=== PATIENT | male | born 1945 | race Caucasian/White ===

== ENCOUNTER 2019-09-23 13:32 | Day surgery (SDC) | payer MEDICARE, OTHER ==
[2019-09-18 14:25] LABS: BASOPHILS # (AUTO) 0.1 X10'3 (0-0.2); BASOPHILS % (AUTO) 0.7 % (0-1); EOSINOPHILS # (AUTO) 0.1 X10'3 (0-0.9); EOSINOPHILS % (AUTO) 1.6 % (0-6); HEMATOCRIT 41.1 % (42.0-52.0); HEMOGLOBIN 13.4 g/dl (14.0-17.9); LYMPHOCYTES # (AUTO) 0.7 X10'3 (1.1-4.8); LYMPHOCYTES % (AUTO) 9.4 % (21-51); MEAN CORPUSCULAR HEMOGLOBIN 30.1 PG (27.0-31.0); MEAN CORPUSCULAR HGB CONC 32.6 g/dL (33.0-36.5); MEAN CORPUSCULAR VOLUME 92.2 FL (78-98); MEAN PLATELET VOLUME 9.7 FL (7.4-10.4); MONOCYTES # (AUTO) 0.7 X10'3 (0-0.9); MONOCYTES % (AUTO) 8.2 % (2-12); NEUTROPHILS # (AUTO) 6.3 X10'3 (1.8-7.7); NEUTROPHILS % (AUTO) 80.1 % (42-75); PLATELET COUNT 140 X10'3 (140-440); RED BLOOD COUNT 4.46 X10'6 (4.70-6.10); RED CELL DISTRIBUTION WIDTH 14.7 % (11.5-14.5); WHITE BLOOD COUNT 7.9 X10'3 (4.5-11.0)
[2019-09-18 14:36] LABS: ALBUMIN 3.9 G/DL (3.4-5.0); ANION GAP 8 (8-16); BLOOD UREA NITROGEN 26 MG/DL (7-18); BUN/CREATININE RATIO 20.6 (5.4-32.0); CALCIUM 9.2 MG/DL (8.5-10.1); CHLORIDE 106 MMOL/L (99-107); CREATININE 1.26 MG/DL (0.60-1.10); GLUCOSE 144 MG/DL (70-104); POTASSIUM 4.2 MMOL/L (3.5-5.1); SODIUM 140 MMOL/L (135-145); TOTAL CARBON DIOXIDE 26.3 MMOL/L (24-32); eGFR 56 ML/MIN
[2019-09-18 14:38] LABS: PARTIAL THROMBOPLASTIN TIME 27 SECONDS (22-32)
[~2019-09-23] VITALS: Ht 170.2 cm; Wt 114.2 kg
[2019-09-23] VITALS (8 sets, daily range): BP systolic 126–155; BP diastolic 58–75
[~2019-09-23 13:32] MED LIST: ALD25T PO; CETI-1 PO; DOCU100C40 PO; FURO-150 PO; HYT1T PO; INSU100V13 SQ; LANTUS SQ; LOP25T PO; LOSA25TA96 PO; METF1000 PO; NOR5T PO; ONDA4TAB6 PO; POTA10TA10 PO; ZOC40T PO
[2019-09-23] MEDS ORDERED: LORazepam 0.5 MG tablet PO PRN (13:55)
[2019-09-23] MEDS ORDERED: normal saline 1,000 ML IV SCH (13:55)
[2019-09-23] MEDS ORDERED: diphenhydrAMINE 25mg capsule PO PRN (13:55)
[2019-09-23] MEDS ORDERED: MULT-1085 PO (14:13)
[2019-09-23] MEDS ORDERED: FERGLU300T PO (14:14)
[2019-09-23] MEDS ORDERED: ASPI-1265 PO (14:14)
[2019-09-23] MEDS ORDERED: NITR0.4T51 SL (14:14)
[2019-09-23] MEDS ORDERED: PANT-47 PO (14:14)
[2019-09-23] MEDS ORDERED: LEVO50TA8 PO (14:14)
[2019-09-23] MEDS ORDERED: DOCU100C40 PO (14:14)
[2019-09-23] MEDS ORDERED: CYAN-51 PO (14:14)
[2019-09-23] MEDS ORDERED: iohexol 350MG/ML 100ml bottle IV ONE (16:02)
[2019-09-23] MEDS ORDERED: LIDOcaine 1% (10mg/ml)w/preservative injection 20ml MDV ONE (16:02)
[2019-09-23] MEDS ORDERED: fentaNYL/PF 50MCG/1 ML 2ML syringe ONE (16:02)
[2019-09-23] MEDS ORDERED: midazolam 2 mg/2 ml injection ONE ×2 (16:02→17:02)
[2019-09-23] MEDS ORDERED: iohexol 350 MG/ML 50ML vial IV ONE (17:13)
[2019-09-23] MEDS ORDERED: ondansetron/PF 4mg/2ml inj IV PRN (18:15)
[2019-09-23] MEDS ORDERED: HYDROcodone/acetaminophen 10/325mg tab PO PRN (18:15)
[2019-09-23] MEDS ORDERED: OXAZEpam 15mg capsule PO PRN (18:15)
[2019-09-23] MEDS ORDERED: proCHLORperazine 10 MG/2 ml inj IV PRN (18:15)
[2019-09-23] MEDS ORDERED: HYDROcodone/acetaminophen 5mg/325mg tablet PO PRN (18:15)
== END 2019-09-23 19:40 | disposition home or self-care (01) ==
LOC: SSTAY O 13:32
PROVIDERS: ATTEND Internal Medicine Interventional Cardiology
DX: R94.39 Abnormal result of other cardiovascular function study (principal); I25.710 Atherosclerosis of autologous vein coronary artery bypass graft(s) with unstable angina pectoris; G47.33 Obstructive sleep apnea (adult) (pediatric); E11.9 Type 2 diabetes mellitus without complications; E03.9 Hypothyroidism, unspecified; F43.10 Post-traumatic stress disorder, unspecified; Z95.1 Presence of aortocoronary bypass graft; Z85.048 Personal history of other malignant neoplasm of rectum, rectosigmoid junction, and anus; Z90.49 Acquired absence of other specified parts of digestive tract; Z98.84 Bariatric surgery status; Z98.890 Other specified postprocedural states; Z79.899 Other long term (current) drug therapy; Z79.01 Long term (current) use of anticoagulants; Z79.82 Long term (current) use of aspirin; Z88.1 Allergy status to other antibiotic agents; Z79.4 Long term (current) use of insulin; Z87.891 Personal history of nicotine dependence; Z83.3 Family history of diabetes mellitus; Z82.49 Family history of ischemic heart disease and other diseases of the circulatory system
CPT/HCPCS: 36415; 80048; 82948; 85025; 85610; 85730; 93459; 99152; C1769; J1644; J2001; J2250; J3010; J7030; Q0163; Q9967; A4620; A6258

== ENCOUNTER 2020-09-02 16:23 | Emergency (ER) | payer OTHER, MEDICARE ==
[~2020-09-02] VITALS: Ht 170.2 cm; Wt 113.6 kg
[~2020-09-02 16:23] MED LIST changes: +ASPI-1265 PO; +CYAN-51 PO; +FERR324T23 PO; -INSU100V13 SQ; +LEVO50TA8 PO; -LOP25T PO; +MULT-1085 PO; +NITR0.4T51 SL; -ONDA4TAB6 PO; +PANT-47 PO
[2020-09-02 17:27] LABS: BASOPHILS % (AUTO) 0.3 % (0-1); EOSINOPHILS # (AUTO) 0.1 X10'3 (0-0.9); EOSINOPHILS % (AUTO) 1.1 % (0-6); HEMATOCRIT 40.6 % (42.0-52.0); HEMOGLOBIN 13.4 g/dl (14.0-17.9); LYMPHOCYTES # (AUTO) 0.6 X10'3 (1.1-4.8); MEAN CORPUSCULAR HEMOGLOBIN 30.6 PG (27.0-31.0); MEAN CORPUSCULAR HGB CONC 32.9 g/dL (33.0-36.5); MEAN CORPUSCULAR VOLUME 92.9 FL (78-98); MONOCYTES # (AUTO) 0.7 X10'3 (0-0.9); MONOCYTES % (AUTO) 6.8 % (2-12); NEUTROPHILS # (AUTO) 8.3 X10'3 (1.8-7.7); NEUTROPHILS % (AUTO) 85.8 % (42-75); PLATELET COUNT 155 X10'3 (140-440); RED BLOOD COUNT 4.37 X10'6 (4.70-6.10); RED CELL DISTRIBUTION WIDTH 14.7 % (11.5-14.5); WHITE BLOOD COUNT 9.6 X10'3 (4.5-11.0)
[2020-09-02 17:43] LABS: ALANINE AMINOTRANSFERASE 20 U/L (12-78); ALBUMIN 3.6 G/DL (3.4-5.0); ALKALINE PHOSPHATASE 121 IU/L (46-116); ANION GAP 10 (8-16); ASPARTATE AMINO TRANSFERASE 14 U/L (10-37); BILIRUBIN,TOTAL 0.7 MG/DL (0.1-1.0); BLOOD UREA NITROGEN 23 MG/DL (7-18); BUN/CREATININE RATIO 20.4 (5.4-32.0); CALCIUM 8.9 MG/DL (8.5-10.1); CHLORIDE 104 MMOL/L (99-107); CREATININE 1.13 MG/DL (0.60-1.10); GLUCOSE 124 MG/DL (70-104); POTASSIUM 3.9 MMOL/L (3.5-5.1); SODIUM 143 MMOL/L (135-145); TOTAL CARBON DIOXIDE 28.7 MMOL/L (24-32); TOTAL PROTEIN 7.3 G/DL (6.4-8.2); eGFR 64 ML/MIN
[2020-09-02 17:59] VITALS: BP 154/72
== END 2020-09-02 18:12 | disposition home or self-care (01) ==
LOC: ER 16:23
DX: I48.91 Unspecified atrial fibrillation (principal); I50.9 Heart failure, unspecified; R07.89 Other chest pain; E78.00 Pure hypercholesterolemia, unspecified; I11.0 Hypertensive heart disease with heart failure; I25.2 Old myocardial infarction; K21.9 Gastro-esophageal reflux disease without esophagitis; E11.9 Type 2 diabetes mellitus without complications; E03.9 Hypothyroidism, unspecified; Z95.5 Presence of coronary angioplasty implant and graft; Z85.038 Personal history of other malignant neoplasm of large intestine; Z79.4 Long term (current) use of insulin; Z79.82 Long term (current) use of aspirin; Z79.899 Other long term (current) drug therapy; Z88.1 Allergy status to other antibiotic agents
CPT/HCPCS: 36415; 71045; 80053; 84484; 85025; 93005; 99285

== ENCOUNTER 2020-09-27 22:05 | Emergency (ER) | payer OTHER, MEDICARE ==
[~2020-09-27] VITALS: Ht 170.2 cm; Wt 92.0 kg
[2020-09-27 22:07] VITALS: BP 151/68
[2020-09-27 22:49] LABS: BASOPHILS # (AUTO) 0.1 X10'3 (0-0.2); BASOPHILS % (AUTO) 0.9 % (0-1); EOSINOPHILS # (AUTO) 0.2 X10'3 (0-0.9); EOSINOPHILS % (AUTO) 1.9 % (0-6); HEMATOCRIT 43.7 % (42.0-52.0); HEMOGLOBIN 14.5 g/dl (14.0-17.9); LYMPHOCYTES # (AUTO) 0.8 X10'3 (1.1-4.8); LYMPHOCYTES % (AUTO) 9.2 % (21-51); MEAN CORPUSCULAR HEMOGLOBIN 30.6 PG (27.0-31.0); MEAN CORPUSCULAR HGB CONC 33.2 g/dL (33.0-36.5); MEAN CORPUSCULAR VOLUME 92.1 FL (78-98); MEAN PLATELET VOLUME 9.3 FL (7.4-10.4); MONOCYTES # (AUTO) 0.8 X10'3 (0-0.9); NEUTROPHILS # (AUTO) 7.2 X10'3 (1.8-7.7); PLATELET COUNT 152 X10'3 (140-440); RED BLOOD COUNT 4.75 X10'6 (4.70-6.10); RED CELL DISTRIBUTION WIDTH 14.4 % (11.5-14.5); WHITE BLOOD COUNT 9.1 X10'3 (4.5-11.0)
[2020-09-27 23:07] LABS: ALANINE AMINOTRANSFERASE 30 U/L (12-78); ALBUMIN 3.8 G/DL (3.4-5.0); ALKALINE PHOSPHATASE 122 IU/L (46-116); ANION GAP 13 (8-16); ASPARTATE AMINO TRANSFERASE 24 U/L (10-37); BILIRUBIN,TOTAL 0.6 MG/DL (0.1-1.0); BLOOD UREA NITROGEN 26 MG/DL (7-18); BUN/CREATININE RATIO 18.7 (5.4-32.0); CHLORIDE 103 MMOL/L (99-107); CREATININE 1.39 MG/DL (0.60-1.10); GLUCOSE 116 MG/DL (70-104); POTASSIUM 3.6 MMOL/L (3.5-5.1); SODIUM 142 MMOL/L (135-145); TOTAL CARBON DIOXIDE 25.9 MMOL/L (24-32); TOTAL PROTEIN 7.8 G/DL (6.4-8.2); eGFR 50 ML/MIN
== END 2020-09-27 23:51 | disposition home or self-care (01) ==
LOC: ER 22:06
DX: E11.649 Type 2 diabetes mellitus with hypoglycemia without coma (principal); I25.10 Atherosclerotic heart disease of native coronary artery without angina pectoris; E78.00 Pure hypercholesterolemia, unspecified; I10 Essential (primary) hypertension; I25.2 Old myocardial infarction; F41.9 Anxiety disorder, unspecified; Z95.1 Presence of aortocoronary bypass graft; Z98.890 Other specified postprocedural states; Z88.1 Allergy status to other antibiotic agents; Z79.82 Long term (current) use of aspirin; Z79.4 Long term (current) use of insulin; Z79.899 Other long term (current) drug therapy
CPT/HCPCS: 36415; 80053; 82948; 85025; 99283

== ENCOUNTER 2020-12-31 08:46 | Day surgery (SDC) | payer OTHER ==
[2020-12-31] VITALS (14 sets, daily range): BP systolic 114–171; BP diastolic 52–90
[~2020-12-31] VITALS: Ht 170.2 cm; Wt 107.0 kg
[2020-12-31 09:44] LABS: BASOPHILS % (AUTO) 0.5 % (0-1); EOSINOPHILS # (AUTO) 0.2 X10'3 (0-0.9); HEMATOCRIT 43.9 % (42.0-52.0); HEMOGLOBIN 14.6 g/dl (14.0-17.9); LYMPHOCYTES # (AUTO) 0.9 X10'3 (1.1-4.8); MEAN CORPUSCULAR HEMOGLOBIN 30.8 PG (27.0-31.0); MEAN CORPUSCULAR HGB CONC 33.2 g/dL (33.0-36.5); MEAN CORPUSCULAR VOLUME 92.9 FL (78-98); MEAN PLATELET VOLUME 8.7 FL (7.4-10.4); MONOCYTES # (AUTO) 0.7 X10'3 (0-0.9); MONOCYTES % (AUTO) 8.5 % (2-12); NEUTROPHILS # (AUTO) 6.1 X10'3 (1.8-7.7); PLATELET COUNT 166 X10'3 (140-440); RED BLOOD COUNT 4.72 X10'6 (4.70-6.10); RED CELL DISTRIBUTION WIDTH 14.5 % (11.5-14.5); WHITE BLOOD COUNT 7.9 X10'3 (4.5-11.0)
[2020-12-31] MEDS ORDERED: DABI150C PO (09:49)
[2020-12-31] MEDS ORDERED: EMPA10TA PO (09:49)
[2020-12-31] MEDS ORDERED: midazolam 1 mg/ML 2ml injection ONE (10:42)
[2020-12-31] MEDS ORDERED: fentaNYL/PF 50MCG/1 ML 2ML syringe ONE (10:43)
== END 2020-12-31 13:40 | disposition home or self-care (01) ==
LOC: SSTAY O 08:46
PROVIDERS: ATTEND Preventive Medicine Aerospace Medicine
DX: R91.1 Solitary pulmonary nodule (principal); C34.12 Malignant neoplasm of upper lobe, left bronchus or lung; N40.0 Benign prostatic hyperplasia without lower urinary tract symptoms; I10 Essential (primary) hypertension; E78.5 Hyperlipidemia, unspecified; G47.30 Sleep apnea, unspecified; F43.10 Post-traumatic stress disorder, unspecified; E11.9 Type 2 diabetes mellitus without complications; Z85.038 Personal history of other malignant neoplasm of large intestine; Z95.1 Presence of aortocoronary bypass graft; Z88.1 Allergy status to other antibiotic agents; Z79.899 Other long term (current) drug therapy; Z79.82 Long term (current) use of aspirin; Z79.4 Long term (current) use of insulin; Z87.891 Personal history of nicotine dependence
CPT/HCPCS: 32408; 36415; 71045; 82948; 85025; 99152; 99153; J2250; J3010; 77012

== ENCOUNTER 2022-02-28 08:24 | Day surgery (SDC) | payer OTHER ==
[~2022-02-28] VITALS: Ht 170.2 cm; Wt 109.7 kg
[2022-02-28] VITALS (13 sets, daily range): BP systolic 120–189; BP diastolic 55–96
[~2022-02-28 08:24] MED LIST changes: +DABI150C PO; +EMPA10TA PO; -POTA10TA10 PO
[2022-02-28] MEDS ORDERED: normal saline 1000ml 1,000 ML IV PRN (08:50)
[2022-02-28 09:14] LABS: BASOPHILS % (AUTO) 0.6 % (0-1); EOSINOPHILS # (AUTO) 0.1 X10'3 (0-0.9); EOSINOPHILS % (AUTO) 1.8 % (0-6); HEMATOCRIT 42.9 % (42.0-52.0); HEMOGLOBIN 13.8 g/dl (14.0-17.9); LYMPHOCYTES # (AUTO) 0.7 X10'3 (1.1-4.8); LYMPHOCYTES % (AUTO) 9.2 % (21-51); MEAN CORPUSCULAR HEMOGLOBIN 28.9 PG (27.0-31.0); MEAN CORPUSCULAR HGB CONC 32.2 g/dL (33.0-36.5); MEAN CORPUSCULAR VOLUME 89.8 FL (78-98); MEAN PLATELET VOLUME 8.7 FL (7.4-10.4); MONOCYTES # (AUTO) 0.6 X10'3 (0-0.9); MONOCYTES % (AUTO) 7.7 % (2-12); NEUTROPHILS % (AUTO) 80.7 % (42-75); PLATELET COUNT 150 X10'3 (140-440); RED BLOOD COUNT 4.78 X10'6 (4.70-6.10); RED CELL DISTRIBUTION WIDTH 14.9 % (11.5-14.5); WHITE BLOOD COUNT 7.5 X10'3 (4.5-11.0)
[2022-02-28] MEDS ORDERED: midazolam 1 mg/ML 2ml injection ONE (09:33)
[2022-02-28] MEDS ORDERED: fentaNYL/PF 50MCG/1 ML 2ML syringe ONE (09:34)
[2022-02-28] MEDS ORDERED: LIDOcaine 1% (10mg/ml) 2ml vial ONE (09:34)
[2022-02-28] MEDS ORDERED: gelatin sponge, absorbable (Gelfoam 12-7MM) sponge TP ONE (10:17)
[2022-02-28] MEDS ORDERED: morphine 4 MG/ML inj SYRINge IV PRN (10:30)
[2022-02-28] MEDS ORDERED: HYDROcodone/acetaminophen 5mg/325mg tablet PO PRN (10:30)
== END 2022-02-28 13:40 | disposition home or self-care (01) ==
LOC: SSTAY O 08:24
PROVIDERS: ATTEND Radiology Vascular & Interventional Radiology
DX: R91.8 Other nonspecific abnormal finding of lung field (principal); C34.12 Malignant neoplasm of upper lobe, left bronchus or lung; I10 Essential (primary) hypertension; I25.10 Atherosclerotic heart disease of native coronary artery without angina pectoris; G47.33 Obstructive sleep apnea (adult) (pediatric); F43.10 Post-traumatic stress disorder, unspecified; I25.9 Chronic ischemic heart disease, unspecified; I73.9 Peripheral vascular disease, unspecified; E78.2 Mixed hyperlipidemia; E11.3519 Type 2 diabetes mellitus with proliferative diabetic retinopathy with macular edema, unspecified eye; Z87.891 Personal history of nicotine dependence; Z88.1 Allergy status to other antibiotic agents; Z98.890 Other specified postprocedural states; Z95.1 Presence of aortocoronary bypass graft; Z79.899 Other long term (current) drug therapy; Z79.82 Long term (current) use of aspirin; Z79.84 Long term (current) use of oral hypoglycemic drugs; Z79.4 Long term (current) use of insulin; Z79.890 Hormone replacement therapy; Z79.01 Long term (current) use of anticoagulants
CPT/HCPCS: 32408; 36415; 71045; 82948; 85025; 99152; 99153; J2250; J3010; J3490; J7030; 77012; A4615

== ENCOUNTER 2022-04-27 10:00 | Outpatient (CLI) | payer MEDICARE ==
[~2022-04-27] VITALS: Ht 165.1 cm; Wt 108.9 kg
[2022-04-27 10:35] LABS: ABG BASE EXCESS -2.3 mmol/L (-2.0-2.0); ABG OXYGEN SATURATION 96.6 % (94-97); ABG PCO2 (T) 36.6 mmHg (35.0-48.0); ABG PO2 (T) 88.2 mmHg (75.0-100.0); ALLEN'S TEST POSITIVE; FCOHb 1.2 % (0.0-3.9); FMetHb 0.2 % (0.0-1.5); FO2Hb 95.2 % (94-97)
[2022-04-27] MEDS ORDERED: albuterol 2.5 MG/3 ML nebule NEB ONE (11:20)
== END 2022-04-27 23:59 | disposition home or self-care (01) ==
LOC: RT 10:00
PROVIDERS: ATTEND Surgery
DX: R94.2 Abnormal results of pulmonary function studies (principal); J98.4 Other disorders of lung
CPT/HCPCS: 36600; 82803; 85018; 94060; 94727; 94729; 94760

== ENCOUNTER 2022-05-11 10:55 | Day surgery (SDC) | payer MEDICARE ==
[2022-05-11] VITALS (12 sets, daily range): BP systolic 129–155; BP diastolic 60–97
[~2022-05-11] VITALS: Ht 167.6 cm; Wt 106.4 kg
[2022-05-11] MEDS ORDERED: nitroGLYCERIN 0.4mg SUBLingual tab SL PRN ×2 (11:20→15:55)
[2022-05-11] MEDS ORDERED: insulin Lispro (HumaLOG) vial - multi-dose SQ SCH (11:20)
[2022-05-11] MEDS ORDERED: diphenhydrAMINE 25mg capsule PO PRN (11:20)
[2022-05-11] MEDS ORDERED: glucagon, human recombinant 1mg kit SUBCUT PRN (11:20)
[2022-05-11] MEDS ORDERED: LORazepam 0.5 MG tablet PO PRN (11:20)
[2022-05-11] MEDS ORDERED: DEXTROSE 15 GM of carb/4 tabs (each vial/BOTTLE has 4 tablets) PO PRN ×2 (11:20)
[2022-05-11] MEDS ORDERED: dextrose 50%-water 50ml dispensing syringe IV PRN ×2 (11:20)
[2022-05-11] MEDS ORDERED: iohexol 350 MG/ML 50ML vial IV ONE (13:20)
[2022-05-11] MEDS ORDERED: fentaNYL/PF 50MCG/1 ML 2ML syringe ONE (13:20)
[2022-05-11] MEDS ORDERED: LIDOcaine 1% 30ml preserv. free vial ONE (13:20)
[2022-05-11] MEDS ORDERED: iohexol 350MG/ML 100ml bottle IV ONE ×2 (13:20→14:38)
[2022-05-11] MEDS ORDERED: midazolam 1 mg/ML 2ml injection ONE (13:20)
[2022-05-11] MEDS ORDERED: ondansetron/PF 4mg/2ml inj IV PRN (15:55)
[2022-05-11] MEDS ORDERED: proCHLORperazine 10 MG/2 ml inj IV PRN (15:55)
[2022-05-11] MEDS ORDERED: normal saline 1000ml 1,000 ML IV SCH (15:55)
[2022-05-11] MEDS ORDERED: HYDROcodone/acetaminophen 10/325mg tab PO PRN (15:55)
[2022-05-11] MEDS ORDERED: OXAZEpam 15mg capsule PO PRN (15:55)
[2022-05-11] MEDS ORDERED: HYDROcodone/acetaminophen 5mg/325mg tablet PO PRN (15:55)
[2022-05-11] MEDS ORDERED: insulin glargine (Lantus) pen - multi-dose SQ SCH (21:00)
[2022-05-13] MEDS ORDERED: EMPA25TA PO (10:46)
[2022-05-13] MEDS ORDERED: TERA2CAP4 PO (10:46)
[2022-05-13] MEDS ORDERED: LEVO75TA7 PO (10:46)
[2022-05-13] MEDS ORDERED: FURO40TA4 PO (10:46)
[2022-05-13] MEDS ORDERED: LOSA100T57 PO (10:46)
== END 2022-05-11 21:05 | disposition home or self-care (01) ==
LOC: SSTAY O 10:55
PROVIDERS: ATTEND Internal Medicine Cardiovascular Disease
DX: R06.09 Other forms of dyspnea (principal); I25.718 Atherosclerosis of autologous vein coronary artery bypass graft(s) with other forms of angina pectoris; G47.33 Obstructive sleep apnea (adult) (pediatric); E11.9 Type 2 diabetes mellitus without complications; M47.9 Spondylosis, unspecified; F40.240 Claustrophobia; I10 Essential (primary) hypertension; E78.5 Hyperlipidemia, unspecified; J44.9 Chronic obstructive pulmonary disease, unspecified; I48.20 Chronic atrial fibrillation, unspecified; E66.01 Morbid (severe) obesity due to excess calories; Z68.37 Body mass index [BMI] 37.0-37.9, adult; Z87.891 Personal history of nicotine dependence; Z88.1 Allergy status to other antibiotic agents; Z95.1 Presence of aortocoronary bypass graft; Z85.038 Personal history of other malignant neoplasm of large intestine; Z79.899 Other long term (current) drug therapy; Z79.01 Long term (current) use of anticoagulants
CPT/HCPCS: 82948; 93459; 99152; 99153; C1760; C1769; J1644; J1815; J2250; J3010; J3490; J7030; Q0163; Q9967

== ENCOUNTER 2022-05-29 19:24 | Emergency (ER) | payer MEDICARE ==
[~2022-05-29] VITALS: Ht 167.6 cm; Wt 107.3 kg
[~2022-05-29 19:24] MED LIST changes: -EMPA10TA PO; +EMPA25TA PO; -FURO-150 PO; +FURO40TA4 PO; -HYT1T PO; -LEVO50TA8 PO; +LEVO75TA7 PO; +LOSA100T57 PO; -LOSA25TA96 PO; +TERA2CAP4 PO
[2022-05-29 20:20] LABS: BASOPHILS # (AUTO) 0.1 X10'3 (0-0.2); BASOPHILS % (AUTO) 0.6 % (0-1); EOSINOPHILS # (AUTO) 0.1 X10'3 (0-0.9); EOSINOPHILS % (AUTO) 0.7 % (0-6); HEMATOCRIT 28.1 % (42.0-52.0); HEMOGLOBIN 9.2 g/dl (14.0-17.9); LYMPHOCYTES # (AUTO) 0.7 X10'3 (1.1-4.8); MEAN CORPUSCULAR HEMOGLOBIN 28.1 PG (27.0-31.0); MEAN CORPUSCULAR HGB CONC 32.6 g/dL (33.0-36.5); MEAN CORPUSCULAR VOLUME 86.3 FL (78-98); MEAN PLATELET VOLUME 7.8 FL (7.4-10.4); MONOCYTES # (AUTO) 1.2 X10'3 (0-0.9); MONOCYTES % (AUTO) 6.6 % (2-12); NEUTROPHILS # (AUTO) 16.6 X10'3 (1.8-7.7); NEUTROPHILS % (AUTO) 88.1 % (42-75); PLATELET COUNT 317 X10'3 (140-440); RED BLOOD COUNT 3.26 X10'6 (4.70-6.10); RED CELL DISTRIBUTION WIDTH 16.8 % (11.5-14.5); WHITE BLOOD COUNT 18.8 X10'3 (4.5-11.0)
[2022-05-29 20:32] LABS: ALANINE AMINOTRANSFERASE 17 U/L (12-78); ALBUMIN 2.2 G/DL (3.4-5.0); ALBUMIN/GLOBULIN RATIO 0.6 (1.1-1.5); ALKALINE PHOSPHATASE 229 IU/L (46-116); ANION GAP 10 (8-16); ASPARTATE AMINO TRANSFERASE 15 U/L (10-37); BILIRUBIN,TOTAL 0.4 MG/DL (0.1-1.0); BLOOD UREA NITROGEN 47 MG/DL (7-18); BUN/CREATININE RATIO 13.6 (5.4-32.0); CALCIUM 8.1 MG/DL (8.5-10.1); CHLORIDE 94 MMOL/L (99-107); CREATININE 3.45 MG/DL (0.60-1.10); GLUCOSE 161 MG/DL (70-104); POTASSIUM 5.4 MMOL/L (3.5-5.1); SODIUM 129 MMOL/L (135-145); TOTAL CARBON DIOXIDE 25.2 MMOL/L (24-32); eGFR 17 ML/MIN
[2022-05-29 22:05] LABS: CLARITY,URINE CLOUDY (Clear); GLUCOSE, URINE 250 mg/dl (Neg); KETONES,URINE TRACE mg/dl (Neg); LEUKOCYTE ESTERASE ,URINE TRACE (Neg); OCCULT BLOOD,URINE LARGE (Neg); PROTEIN,URINE 100 mg/dl (Neg); UROBILINOGEN,URINE 0.2 E.U/dL (0.2-1.0)
[2022-05-29] MEDS ORDERED: normal saline 1000ML IV soln IVB ONE (22:05)
[2022-05-29] MEDS ORDERED: CefTRIAXone 2gm/D5W 50ml BAG 50 ML IV ONE (22:05)
[2022-05-29 22:10] LABS: COLOR,URINE DARK YELLOW (Yellow); UA COLLECTION TYPE STRAIGHT CATH
[2022-05-29 22:12] LABS: NITRITES, URINE NEGATIVE (Neg)
[2022-05-29 22:13] LABS: MUCUS STRANDS FEW /LPF (Neg); RBC,URINE TNTC /HPF (0-2); SQUAMOUS EPITHELIAL CELL,UR FEW /LPF (FEW); TRANSITIONAL EPI CELLS,URINE FEW /HPF
[2022-05-29 22:14] LABS: BACTERIA,URINE 3+ /HPF (Neg); RENAL CELLS, URINE FEW /HPF; WBC CLUMPS,URINE FEW /HPF (NEGATIVE)
[2022-05-29 23:00] VITALS: BP 104/48
[2022-05-29] MEDS ORDERED: CEPH500C2 PO (23:17)
[2022-06-01] MEDS ORDERED: HYDR-3973 PO (00:46)
[2022-06-01] MEDS ORDERED: NA P133E4 RC (00:46)
[2022-06-01] MEDS ORDERED: ATOR20TA PO (00:46)
[2022-06-01] MEDS ORDERED: FURO-149 PO (00:46)
[2022-06-01] MEDS ORDERED: BISA10SU60 RC (00:46)
[2022-06-01] MEDS ORDERED: LOPE-190 PO (00:46)
[2022-06-01] MEDS ORDERED: MAGN400O6 PO (00:46)
[2022-06-01] MEDS ORDERED: ACET-2119 PO (00:46)
[2022-06-01] MEDS ORDERED: INSU100V43 (00:46)
== END 2022-05-30 00:18 | disposition home or self-care (01) ==
LOC: ER 19:25
DX: N39.0 Urinary tract infection, site not specified (principal); E86.0 Dehydration; E78.00 Pure hypercholesterolemia, unspecified; I10 Essential (primary) hypertension; E11.9 Type 2 diabetes mellitus without complications; Z88.1 Allergy status to other antibiotic agents
CPT/HCPCS: 36415; 71045; 80053; 81001; 83605; 84145; 85025; 87040; 87077; 87088; 87186; 96365; 99284; J0696; J7030

== ENCOUNTER 2022-06-22 09:49 | Inpatient (IN) | payer OTHER, MEDICARE ==
[~2022-06-22] VITALS: Ht 167.6 cm; Wt 90.3 kg
[~2022-06-22 09:49] MED LIST changes: +ACET-2119 PO; +ATOR20TA PO; +BISA10SU60 RC; +FURO-149 PO; -FURO40TA4 PO; +HYDR-3973 PO; +INSU100V43; +LOPE-190 PO; +MAGN400O6 PO; +NA P133E4 RC; -ZOC40T PO
[2022-06-22 10:19] LABS: BASOPHILS # (AUTO) 0.1 X10'3 (0-0.2); BASOPHILS % (AUTO) 0.9 % (0-1); EOSINOPHILS # (AUTO) 0.2 X10'3 (0-0.9); EOSINOPHILS % (AUTO) 2.2 % (0-6); HEMOGLOBIN 10.7 g/dl (14.0-17.9); LYMPHOCYTES # (AUTO) 0.5 X10'3 (1.1-4.8); LYMPHOCYTES % (AUTO) 5.3 % (21-51); MEAN CORPUSCULAR HEMOGLOBIN 26.3 PG (27.0-31.0); MEAN CORPUSCULAR HGB CONC 30.5 g/dL (33.0-36.5); MEAN CORPUSCULAR VOLUME 86.2 FL (78-98); MONOCYTES # (AUTO) 0.8 X10'3 (0-0.9); MONOCYTES % (AUTO) 9.7 % (2-12); NEUTROPHILS # (AUTO) 7.1 X10'3 (1.8-7.7); NEUTROPHILS % (AUTO) 81.9 % (42-75); PLATELET COUNT 294 X10'3 (140-440); RED BLOOD COUNT 4.06 X10'6 (4.70-6.10); RED CELL DISTRIBUTION WIDTH 17.2 % (11.5-14.5); WHITE BLOOD COUNT 8.7 X10'3 (4.5-11.0)
[2022-06-22 10:24] LABS: ALANINE AMINOTRANSFERASE 6 U/L (12-78); ALBUMIN 2.3 G/DL (3.4-5.0); ALBUMIN/GLOBULIN RATIO 0.5 (1.1-1.5); ALKALINE PHOSPHATASE 237 IU/L (46-116); ASPARTATE AMINO TRANSFERASE 14 U/L (10-37); BILIRUBIN,TOTAL 0.7 MG/DL (0.1-1.0); BLOOD UREA NITROGEN 24 MG/DL (7-18); BUN/CREATININE RATIO 18.8 (5.4-32.0); CALCIUM 8.8 MG/DL (8.5-10.1); CHLORIDE 108 MMOL/L (99-107); CREATININE 1.28 MG/DL (0.60-1.10); GLUCOSE 199 MG/DL (70-104); MAGNESIUM 2.1 MG/DL (1.5-2.4); POTASSIUM 4.3 MMOL/L (3.5-5.1); TOTAL CARBON DIOXIDE 25.9 MMOL/L (24-32); TOTAL PROTEIN 6.6 G/DL (6.4-8.2); eGFR 55 ML/MIN
[2022-06-22 10:27] LABS: ANION GAP 6 (8-16); SODIUM 140 MMOL/L (135-145)
[2022-06-22] MEDS ORDERED: furosemide 10 MG/1 ML 10ml inj IV ONE (10:35)
[2022-06-22] MEDS ORDERED: iohexol 350MG/ML 100ml bottle IV ONE ×2 (10:38→12:51)
[2022-06-22] MEDS ORDERED: albuterol 2.5 MG/3 ML nebule NEB ONE (11:30)
[2022-06-22] MEDS ORDERED: ipratropium/albuterol 3ml nebule NEB ONE (11:30)
[2022-06-22] MEDS ORDERED: ipratropium 0.5 MG/2.5ML nebule ONE (14:06)
[2022-06-22] MEDS ORDERED: ipratropium 0.5 MG/2.5ML nebule IH ONE (14:10)
[2022-06-22] MEDS: MESSAGE TO NURSING PO NR (14:23)
[2022-06-22 15:09] LABS: ABG BASE EXCESS 1.8 mmol/L (-2.0-2.0); ABG HCO3 27.1 mmol/L (22.0-26.0); ABG OXYGEN SATURATION 97.4 % (94-97); ABG PCO2 (T) 45.7 mmHg (35.0-48.0); ABG PO2 (T) 100.4 mmHg (75.0-100.0); ALLEN'S TEST POSITIVE; FCOHb 0.4 % (0.0-3.9); FMetHb 0.3 % (0.0-1.5); FO2Hb 96.7 % (94-97); RESPIRATORY RATE 10 b/min; TOTAL HEMOGLOBIN 11.3 G/dl (14.0-17.9)
[2022-06-22] MEDS ORDERED: cefepime 2g/NS 100ml ADVANTAGE 100 ML IV ONE (16:10)
[2022-06-22 16:33] VITALS: BP 134/67
[2022-06-22 16:45] VITALS: BP 131/61
[2022-06-22] MEDS ORDERED: HYDR-3973 PO (17:05)
[2022-06-22] MEDS ORDERED: NA P133E4 RC (17:06)
[2022-06-22] MEDS ORDERED: BISA10SU60 RC (17:06)
[2022-06-22] MEDS ORDERED: MAGN400O6 PO (17:06)
[2022-06-22] MEDS ORDERED: SIMV-343 PO (17:13)
[2022-06-22] MEDS ORDERED: morphine 2 MG/ML inj. syringe IV PRN (18:05)
[2022-06-22] MEDS ORDERED: ipratropium/albuterol 3ml nebule NEB PRN ×2 (18:05)
[2022-06-22] MEDS ORDERED: potassium Cl 20 mEq SR tablet PO PRN ×2 (18:05)
[2022-06-22] MEDS ORDERED: potassium Cl 40MEQ/1/2NS 520ml 520 ML IV PRN (18:05)
[2022-06-22] MEDS ORDERED: magnesium Cl slow-release 64mg tablet PO PRN (18:05)
[2022-06-22] MEDS ORDERED: acetaminophen 325mg tablet PO PRN (18:05)
[2022-06-22] MEDS ORDERED: ondansetron/PF 4mg/2ml inj IV PRN (18:05)
[2022-06-22] MEDS ORDERED: magnesium 4gm in 100ml NS 100 ML IV PRN (18:05)
[2022-06-22] MEDS: normal saline 1000ml 1,000 ML IV SCH (18:32)
--- NOTE | 2022-06-22 19:23 | NUR ---
CHEST TUBE OUTPUT OF 1922 625 CC SEROSANGUINOUS
[2022-06-22] MEDS: K and/or MAG REPLACEMENT MC SCH (20:00)
--- NOTE | 2022-06-22 21:47 | NUR ---
report called to PCU Nurse
[2022-06-22 23:00] VITALS: BP 142/54
[2022-06-23 06:00] VITALS: BP 134/46
[2022-06-23 07:02] LABS: BASOPHILS % (AUTO) 0.5 % (0-1); EOSINOPHILS # (AUTO) 0.1 X10'3 (0-0.9); EOSINOPHILS % (AUTO) 1.2 % (0-6); HEMATOCRIT 32.4 % (42.0-52.0); HEMOGLOBIN 10.3 g/dl (14.0-17.9); LYMPHOCYTES # (AUTO) 0.5 X10'3 (1.1-4.8); LYMPHOCYTES % (AUTO) 6.2 % (21-51); MEAN CORPUSCULAR HEMOGLOBIN 26.4 PG (27.0-31.0); MEAN CORPUSCULAR HGB CONC 31.7 g/dL (33.0-36.5); MEAN CORPUSCULAR VOLUME 83.4 FL (78-98); MEAN PLATELET VOLUME 7.9 FL (7.4-10.4); MONOCYTES # (AUTO) 0.7 X10'3 (0-0.9); MONOCYTES % (AUTO) 8.3 % (2-12); NEUTROPHILS # (AUTO) 6.8 X10'3 (1.8-7.7); NEUTROPHILS % (AUTO) 83.8 % (42-75); PLATELET COUNT 315 X10'3 (140-440); RED BLOOD COUNT 3.89 X10'6 (4.70-6.10); RED CELL DISTRIBUTION WIDTH 17.1 % (11.5-14.5); WHITE BLOOD COUNT 8.1 X10'3 (4.5-11.0)
--- NOTE | 2022-06-23 07:18 | NUR ---
PAGER ID: [phone] MESSAGE: Parviz in [id number] - Pt has no diet order and home meds have not been ordered. -Jenna [phone]
[2022-06-23 07:30] LABS: ALBUMIN 2.3 G/DL (3.4-5.0); ANION GAP 8 (8-16); BLOOD UREA NITROGEN 25 MG/DL (7-18); BUN/CREATININE RATIO 19.5 (5.4-32.0); CALCIUM 8.8 MG/DL (8.5-10.1); CHLORIDE 106 MMOL/L (99-107); CREATININE 1.28 MG/DL (0.60-1.10); GLUCOSE 148 MG/DL (70-104); MAGNESIUM 2.1 MG/DL (1.5-2.4); POTASSIUM 3.9 MMOL/L (3.5-5.1); SODIUM 143 MMOL/L (135-145); TOTAL CARBON DIOXIDE 28.8 MMOL/L (24-32); eGFR 55 ML/MIN
[2022-06-23] MEDS: K and/or MAG REPLACEMENT MC SCH ×2 (08:00→20:00)
[2022-06-23] MEDS: MESSAGE TO NURSING PO NR (10:00)
[2022-06-23] MEDS: HYDROcodone/acetaminophen 5mg/325mg tablet PO PRN (10:17)
--- NOTE | 2022-06-23 10:57 | NUR ---
PAGER ID: [phone] MESSAGE: Parviz Vigil in [id number] - Pt is diabetic. Do you want him on protocol? -Jenna [phone]
[2022-06-23 11:27] VITALS: BP 140/55
--- NOTE | 2022-06-23 11:54 | NUR ---
Student documentation: I have reviewed and agree with all interventions, assessments performed and documented by Nettie student nurse.
--- NOTE | 2022-06-23 14:00 | NUR ---
PRESSURE ULCER EDUCATION: DEFINITION: A pressure ulcer is an area of skin that breaks down when you stay in one position too long. The constant pressure against the skin reduces the blood flow to that area and the affected tissue dies. CAUSES: "Being bedridden or in a wheelchair "Fragile skin "Having a chronic condition, such as diabetes or vascular disease "Inability to move certain parts of your body without assistance "Older age "Incontinence of urine or stool SYMPTOMS: "A reddened area that DOES NOT turn white when pressed on - this can be the beginning of a pressure ulcer "A blister, deep sore or a crater - these can be advanced pressure ulcers FIRST AID: "Relieve the pressure on this area "Keep the area clean and dry "Call your primary doctor if you see any of the above symptoms "DO NOT massage the area "DO NOT use a donut shaped or ring shaped pillow- these actually interfere with the blood flow and cause complications PREVENTION: "Check for pressure ulcers everyday "Change position at least every two hours to relieve pressure "Use items that help relieve pressure- pillows, sheepskin, foam padding, and powders. "Keep skin clean and dry "Eat healthy well balanced meals "Exercise daily IF YOU SEE ANY OF THESE SYMPTOMS WHILE IN THE HOSPITAL - TELL YOUR NURSE IMMEDIATELY. IF YOU SEE ANY OF THESE SYMPTOMS WHILE AT HOME OR HAVE ANY QUESTIONS OR CONCERNS ABOUT PRESSURE ULCERS - CALL YOUR PRIMARY DOCTOR IMMEDIATELY. Addendum: 06/23/22 at 1401 by Sonali Napier RN Amended: Links added.
[2022-06-23 15:00] VITALS: BP 136/52
--- NOTE | 2022-06-23 16:21 | NUR ---
SW Dr. Fernandez this morning regarding ordering pt's home medications. Dr. Fernandez said she would look at med list.
[2022-06-23 18:00] VITALS: BP 152/65
[2022-06-23] MEDS: amLODIPine 5mg tablet PO SCH (18:05)
[2022-06-23] MEDS ORDERED: loperamide 2mg capsule PO PRN (18:05)
[2022-06-23] MEDS: levoTHYROXINE 75mcg tablet PO SCH (18:05)
[2022-06-23] MEDS ORDERED: bisacodyl 10mg suppository rectal RC PRN (18:05)
[2022-06-23] MEDS: furosemide 40mg tablet PO SCH (18:05)
[2022-06-23] MEDS: pantoprazole 40mg Tablet.DR PO SCH (18:05)
[2022-06-23] MEDS: cyanocobalamin 500mcg tablet PO SCH (18:05)
[2022-06-23] MEDS: aspirin 81mg tab.chew PO SCH (19:03)
[2022-06-23] MEDS: HYDROcodone/acetaminophen 10/325mg tab PO PRN (19:03)
[2022-06-23] MEDS ORDERED: metFORMIN 500mg tablet PO SCH (20:00)
[2022-06-23] MEDS: dabigatran 150mg capsule PO SCH (20:00)
[2022-06-23] MEDS: Terazosin 1mg capsule PO SCH (20:46)
[2022-06-23] MEDS: docusate sod 100mg capsule PO SCH (20:47)
[2022-06-23] MEDS: spironolactone 25 MG tablet PO SCH (20:51)
[2022-06-23] MEDS: ferrous gluconate 324mg tablet PO SCH (20:52)
[2022-06-23] MEDS: cetirizine 10mg tablet PO SCH (20:53)
[2022-06-23] MEDS: atorvastatin 20mg tablet PO SCH (20:53)
[2022-06-23] MEDS: insulin glargine (Lantus) pen - multi-dose SQ SCH (21:00)
[2022-06-23 22:00] VITALS: BP 151/60
[2022-06-24] MEDS: HYDROcodone/acetaminophen 10/325mg tab PO PRN ×4 (01:59→19:39)
[2022-06-24 02:00] VITALS: BP 137/68
--- NOTE | 2022-06-24 04:32 | NUR ---
daily meds scheduled for 1804 were not given as they are given in the morning
[2022-06-24 06:00] VITALS: BP 154/67
--- NOTE | 2022-06-24 06:12 | NUR ---
Problems reprioritized. Patient report given, questions answered & plan of care reviewed with Jenna WELSH.
--- NOTE | 2022-06-24 06:58 | NUR ---
Patient in room PCU 3016. I have received report from Vaishali and had the opportunity to ask questions and assume patient care.
--- NOTE | 2022-06-24 07:01 | NUR ---
AGREE WITH KIMMY BEDOYA EXCEPT WHERE I DOCUMENTED MY FINDINGS, PT HAS CHEST TUBE TO THE RIGHT LUNG AND RECENT SURGERY TO THE LEFT LUNG WHERE THEY TOOK MOST OF HIS LUNG OUT PER PATIENT.
[2022-06-24 07:28] LABS: BASOPHILS # (AUTO) 0.1 X10'3 (0-0.2); BASOPHILS % (AUTO) 0.9 % (0-1); EOSINOPHILS # (AUTO) 0.2 X10'3 (0-0.9); EOSINOPHILS % (AUTO) 3.5 % (0-6); HEMATOCRIT 32.6 % (42.0-52.0); HEMOGLOBIN 10.1 g/dl (14.0-17.9); LYMPHOCYTES # (AUTO) 0.6 X10'3 (1.1-4.8); MEAN CORPUSCULAR HEMOGLOBIN 25.6 PG (27.0-31.0); MEAN CORPUSCULAR HGB CONC 30.9 g/dL (33.0-36.5); MEAN PLATELET VOLUME 7.8 FL (7.4-10.4); MONOCYTES # (AUTO) 0.8 X10'3 (0-0.9); NEUTROPHILS # (AUTO) 5.3 X10'3 (1.8-7.7); NEUTROPHILS % (AUTO) 76.6 % (42-75); PLATELET COUNT 302 X10'3 (140-440); RED BLOOD COUNT 3.93 X10'6 (4.70-6.10); RED CELL DISTRIBUTION WIDTH 16.8 % (11.5-14.5)
[2022-06-24 07:35] LABS: ALBUMIN 2.1 G/DL (3.4-5.0); ANION GAP 7 (8-16); BLOOD UREA NITROGEN 27 MG/DL (7-18); BUN/CREATININE RATIO 22.3 (5.4-32.0); CALCIUM 8.5 MG/DL (8.5-10.1); CHLORIDE 102 MMOL/L (99-107); CREATININE 1.21 MG/DL (0.60-1.10); GLUCOSE 135 MG/DL (70-104); POTASSIUM 3.8 MMOL/L (3.5-5.1); SODIUM 139 MMOL/L (135-145); TOTAL CARBON DIOXIDE 30.2 MMOL/L (24-32); eGFR 59 ML/MIN
[2022-06-24] MEDS ORDERED: EMPAGLIFLOZIN 25 MG TABLET PO SCH (08:00)
[2022-06-24] MEDS: K and/or MAG REPLACEMENT MC SCH ×2 (08:00→20:00)
[2022-06-24] MEDS: dabigatran 150mg capsule PO SCH ×2 (08:31→22:57)
[2022-06-24] MEDS: amLODIPine 5mg tablet PO SCH (08:32)
[2022-06-24] MEDS: multivitamins, therapeutics tablet PO SCH (08:33)
[2022-06-24] MEDS: cyanocobalamin 500mcg tablet PO SCH (08:33)
[2022-06-24] MEDS: pantoprazole 40mg Tablet.DR PO SCH (08:34)
[2022-06-24] MEDS: ferrous gluconate 324mg tablet PO SCH ×2 (08:34→19:37)
[2022-06-24] MEDS: losartan 50mg tablet PO SCH (08:35)
[2022-06-24] MEDS: furosemide 40mg tablet PO SCH (08:35)
[2022-06-24] MEDS: docusate sod 100mg capsule PO SCH ×2 (08:35→19:38)
[2022-06-24] MEDS: levoTHYROXINE 75mcg tablet PO SCH (08:35)
[2022-06-24] MEDS: MESSAGE TO NURSING PO NR (10:00)
--- NOTE | 2022-06-24 11:43 | NUR ---
Changed Atrium on pt's chest tube. Total amount in collection container is 2020ml.
[2022-06-24 14:00] VITALS: BP 114/45
[2022-06-24 18:00] VITALS: BP 123/63
[2022-06-24] MEDS: normal saline 1000ml 1,000 ML IV SCH (18:05)
[2022-06-24] MEDS: Terazosin 1mg capsule PO SCH (19:37)
[2022-06-24] MEDS: spironolactone 25 MG tablet PO SCH (19:38)
[2022-06-24] MEDS ORDERED: dextrose 50%-water 50ml dispensing syringe IV PRN ×2 (22:55)
[2022-06-24] MEDS ORDERED: MESSAGE TO PHARMACY PO ONE (22:55)
[2022-06-24] MEDS ORDERED: DEXTROSE 15 GM of carb/4 tabs (each vial/BOTTLE has 4 tablets) PO PRN ×2 (22:55)
[2022-06-24] MEDS ORDERED: glucagon, human recombinant 1mg kit SUBCUT PRN (22:55)
[2022-06-24] MEDS: cetirizine 10mg tablet PO SCH (22:59)
[2022-06-24] MEDS: atorvastatin 20mg tablet PO SCH (22:59)
[2022-06-24] MEDS: insulin glargine (Lantus) pen - multi-dose SQ SCH (23:02)
[2022-06-25] MEDS: HYDROcodone/acetaminophen 10/325mg tab PO PRN ×4 (00:02→19:28)
--- NOTE | 2022-06-25 06:30 | NUR ---
Patient in room PCU 3016. I have received report from Carleen WELSH and had the opportunity to ask questions and assume patient care.
[2022-06-25 07:00] VITALS: BP 129/53
--- NOTE | 2022-06-25 07:04 | NUR ---
Problems reprioritized. Patient report given, questions answered & plan of care reviewed with ERIK WELSH.
[2022-06-25 08:08] LABS: BASOPHILS # (AUTO) 0.1 X10'3 (0-0.2); BASOPHILS % (AUTO) 0.9 % (0-1); EOSINOPHILS # (AUTO) 0.3 X10'3 (0-0.9); EOSINOPHILS % (AUTO) 3.3 % (0-6); HEMATOCRIT 31.7 % (42.0-52.0); LYMPHOCYTES # (AUTO) 0.5 X10'3 (1.1-4.8); LYMPHOCYTES % (AUTO) 7.1 % (21-51); MEAN CORPUSCULAR HEMOGLOBIN 25.9 PG (27.0-31.0); MEAN CORPUSCULAR HGB CONC 31.5 g/dL (33.0-36.5); MEAN CORPUSCULAR VOLUME 82.2 FL (78-98); MONOCYTES # (AUTO) 0.8 X10'3 (0-0.9); NEUTROPHILS % (AUTO) 77.7 % (42-75); PLATELET COUNT 291 X10'3 (140-440); RED BLOOD COUNT 3.85 X10'6 (4.70-6.10); RED CELL DISTRIBUTION WIDTH 16.8 % (11.5-14.5); WHITE BLOOD COUNT 7.7 X10'3 (4.5-11.0)
[2022-06-25 08:32] LABS: ALBUMIN 2.1 G/DL (3.4-5.0); ANION GAP 7 (8-16); BLOOD UREA NITROGEN 25 MG/DL (7-18); BUN/CREATININE RATIO 20.2 (5.4-32.0); CALCIUM 8.6 MG/DL (8.5-10.1); CHLORIDE 101 MMOL/L (99-107); CREATININE 1.24 MG/DL (0.60-1.10); GLUCOSE 129 MG/DL (70-104); MAGNESIUM 1.9 MG/DL (1.5-2.4); POTASSIUM 3.7 MMOL/L (3.5-5.1); SODIUM 138 MMOL/L (135-145); TOTAL CARBON DIOXIDE 30.3 MMOL/L (24-32); eGFR 57 ML/MIN
[2022-06-25] MEDS: K and/or MAG REPLACEMENT MC SCH ×2 (08:52→19:27)
[2022-06-25] MEDS: furosemide 40mg tablet PO SCH (08:53)
[2022-06-25] MEDS: losartan 50mg tablet PO SCH (08:53)
[2022-06-25] MEDS: EMPAGLIFLOZIN 25 MG TABLET PO SCH (08:53)
[2022-06-25] MEDS: ferrous gluconate 324mg tablet PO SCH ×2 (08:53→19:33)
[2022-06-25] MEDS: docusate sod 100mg capsule PO SCH ×2 (08:53→19:29)
[2022-06-25] MEDS: multivitamins, therapeutics tablet PO SCH (08:54)
[2022-06-25] MEDS: pantoprazole 40mg Tablet.DR PO SCH (08:54)
[2022-06-25] MEDS: dabigatran 150mg capsule PO SCH ×2 (08:54→19:31)
[2022-06-25] MEDS: levoTHYROXINE 75mcg tablet PO SCH (08:54)
[2022-06-25] MEDS: cyanocobalamin 500mcg tablet PO SCH (08:54)
[2022-06-25] MEDS: amLODIPine 5mg tablet PO SCH (08:54)
--- NOTE | 2022-06-25 09:30 | NUR ---
3 pillows, 1 sheetfor bed weighing purposes Addendum: 06/25/22 at 0931 by Alexis Raygoza LVN Amended: Links added.
--- NOTE | 2022-06-25 11:28 | NUR ---
clarified with Dr. Gonzalez, Change current Lantus order from 64 units at night to 10 units at 2100hrs administration.
[2022-06-25 15:00] VITALS: BP 120/41
--- NOTE | 2022-06-25 17:53 | NUR ---
paged Page Sent PAGER ID: [phone] MESSAGE: [id number]- Parole Director. Wound dressing changed to surgical incision to left chest from prior CT. Wound has slough on wound bed. Wound care consult inputted. Gio Raygoza LVN
--- NOTE | 2022-06-25 18:00 | NUR ---
Pt offered Bowel intervention for no bm x 3 days during shift. Pt stated he would like to wait. Will endorse to operations supervisor 2nd shift
--- NOTE | 2022-06-25 18:09 | NUR ---
Patient in room PCU 3016. I have received report from Alexis WELSH and had the opportunity to ask questions and assume patient care.
--- NOTE | 2022-06-25 18:12 | NUR ---
Problems reprioritized. Patient report given, questions answered & plan of care reviewed with Carleen WELSH.
[2022-06-25 19:00] VITALS: BP 123/48
[2022-06-25] MEDS: cetirizine 10mg tablet PO SCH (19:28)
[2022-06-25] MEDS: spironolactone 25 MG tablet PO SCH (19:29)
[2022-06-25] MEDS: Terazosin 1mg capsule PO SCH (19:31)
[2022-06-25] MEDS: atorvastatin 20mg tablet PO SCH (19:32)
[2022-06-25] MEDS ORDERED: insulin glargine (Lantus) pen - multi-dose SQ SCH (21:00)
[2022-06-25 22:00] VITALS: BP 118/46
[2022-06-25] MEDS: insulin glargine (Lantus) pen - multi-dose SQ SCH (22:18)
[2022-06-26 02:00] VITALS: BP 136/55
[2022-06-26] MEDS: magnesium hydroxide 30ml (MOM) UD suspension PO PRN (05:12)
[2022-06-26] MEDS: HYDROcodone/acetaminophen 10/325mg tab PO PRN ×2 (05:12→20:53)
--- NOTE | 2022-06-26 06:19 | NUR ---
Problems reprioritized. Patient report given, questions answered & plan of care reviewed with KELLI WELSH.
[2022-06-26 06:46] LABS: BASOPHILS # (AUTO) 0.1 X10'3 (0-0.2); BASOPHILS % (AUTO) 0.8 % (0-1); EOSINOPHILS # (AUTO) 0.3 X10'3 (0-0.9); EOSINOPHILS % (AUTO) 3.4 % (0-6); HEMATOCRIT 30.5 % (42.0-52.0); HEMOGLOBIN 9.7 g/dl (14.0-17.9); LYMPHOCYTES # (AUTO) 0.5 X10'3 (1.1-4.8); LYMPHOCYTES % (AUTO) 7.3 % (21-51); MEAN CORPUSCULAR HEMOGLOBIN 26.1 PG (27.0-31.0); MEAN CORPUSCULAR HGB CONC 31.8 g/dL (33.0-36.5); MEAN PLATELET VOLUME 7.9 FL (7.4-10.4); MONOCYTES # (AUTO) 0.8 X10'3 (0-0.9); NEUTROPHILS # (AUTO) 5.7 X10'3 (1.8-7.7); NEUTROPHILS % (AUTO) 77.5 % (42-75); PLATELET COUNT 286 X10'3 (140-440); RED BLOOD COUNT 3.72 X10'6 (4.70-6.10); RED CELL DISTRIBUTION WIDTH 16.9 % (11.5-14.5); WHITE BLOOD COUNT 7.3 X10'3 (4.5-11.0)
[2022-06-26 06:52] LABS: ALBUMIN 1.9 G/DL (3.4-5.0); ANION GAP 5 (8-16); BLOOD UREA NITROGEN 24 MG/DL (7-18); BUN/CREATININE RATIO 20.7 (5.4-32.0); CALCIUM 8.4 MG/DL (8.5-10.1); CHLORIDE 102 MMOL/L (99-107); CREATININE 1.16 MG/DL (0.60-1.10); GLUCOSE 123 MG/DL (70-104); POTASSIUM 3.8 MMOL/L (3.5-5.1); SODIUM 138 MMOL/L (135-145); TOTAL CARBON DIOXIDE 30.9 MMOL/L (24-32); eGFR 62 ML/MIN
[2022-06-26 07:00] VITALS: BP 145/50
[2022-06-26] MEDS: K and/or MAG REPLACEMENT MC SCH ×2 (08:00→20:00)
[2022-06-26] MEDS: EMPAGLIFLOZIN 25 MG TABLET PO SCH (08:49)
[2022-06-26] MEDS: dabigatran 150mg capsule PO SCH ×2 (08:49→20:55)
[2022-06-26] MEDS: amLODIPine 5mg tablet PO SCH (08:49)
[2022-06-26] MEDS: pantoprazole 40mg Tablet.DR PO SCH (08:50)
[2022-06-26] MEDS: docusate sod 100mg capsule PO SCH ×2 (08:50→20:57)
[2022-06-26] MEDS: furosemide 40mg tablet PO SCH (08:51)
[2022-06-26] MEDS: multivitamins, therapeutics tablet PO SCH (08:51)
[2022-06-26] MEDS: levoTHYROXINE 75mcg tablet PO SCH (08:51)
[2022-06-26] MEDS: losartan 50mg tablet PO SCH (08:52)
[2022-06-26] MEDS: ferrous gluconate 324mg tablet PO SCH ×2 (08:52→20:56)
[2022-06-26] MEDS: cyanocobalamin 500mcg tablet PO SCH (08:52)
[2022-06-26 12:00] VITALS: BP 126/50
[2022-06-26] MEDS: HYDROcodone/acetaminophen 5mg/325mg tablet PO PRN (13:42)
[2022-06-26 16:00] VITALS: BP 117/46
[2022-06-26 18:00] VITALS: BP 111/45
[2022-06-26] MEDS: normal saline 1000ml 1,000 ML IV SCH (18:05)
[2022-06-26] MEDS: Terazosin 1mg capsule PO SCH (20:52)
[2022-06-26] MEDS: aspirin 81mg tab.chew PO SCH (20:53)
[2022-06-26] MEDS: spironolactone 25 MG tablet PO SCH (20:56)
[2022-06-26] MEDS: cetirizine 10mg tablet PO SCH (20:56)
[2022-06-26] MEDS: atorvastatin 20mg tablet PO SCH (20:56)
[2022-06-26] MEDS: insulin glargine (Lantus) pen - multi-dose SQ SCH (21:00)
[2022-06-27 02:00] VITALS: BP 124/49
[2022-06-27] MEDS: HYDROcodone/acetaminophen 10/325mg tab PO PRN ×3 (02:15→17:23)
[2022-06-27 07:00] VITALS: BP 121/59
[2022-06-27 07:27] LABS: BASOPHILS # (AUTO) 0.1 X10'3 (0-0.2); EOSINOPHILS # (AUTO) 0.2 X10'3 (0-0.9); EOSINOPHILS % (AUTO) 3.4 % (0-6); HEMATOCRIT 35.4 % (42.0-52.0); LYMPHOCYTES # (AUTO) 0.6 X10'3 (1.1-4.8); LYMPHOCYTES % (AUTO) 9.5 % (21-51); MEAN CORPUSCULAR HEMOGLOBIN 25.6 PG (27.0-31.0); MEAN CORPUSCULAR HGB CONC 31.2 g/dL (33.0-36.5); MEAN CORPUSCULAR VOLUME 82.2 FL (78-98); MEAN PLATELET VOLUME 8.1 FL (7.4-10.4); MONOCYTES # (AUTO) 0.8 X10'3 (0-0.9); NEUTROPHILS # (AUTO) 4.8 X10'3 (1.8-7.7); NEUTROPHILS % (AUTO) 74.1 % (42-75); PLATELET COUNT 268 X10'3 (140-440); RED BLOOD COUNT 4.31 X10'6 (4.70-6.10); RED CELL DISTRIBUTION WIDTH 17.4 % (11.5-14.5); WHITE BLOOD COUNT 6.5 X10'3 (4.5-11.0)
[2022-06-27 07:37] LABS: ALBUMIN 2.2 G/DL (3.4-5.0); ANION GAP 7 (8-16); BLOOD UREA NITROGEN 25 MG/DL (7-18); BUN/CREATININE RATIO 18.1 (5.4-32.0); CALCIUM 8.9 MG/DL (8.5-10.1); CHLORIDE 98 MMOL/L (99-107); CREATININE 1.38 MG/DL (0.60-1.10); GLUCOSE 137 MG/DL (70-104); POTASSIUM 3.7 MMOL/L (3.5-5.1); SODIUM 136 MMOL/L (135-145); TOTAL CARBON DIOXIDE 30.6 MMOL/L (24-32); eGFR 50 ML/MIN
--- NOTE | 2022-06-27 07:43 | NUR ---
pm bs AND lANTUS NOT GIVEN LAST NIGHT BY noc. cHARGE HAD SEVERAL PT'S AND WORK LOAD PREVENTED.
[2022-06-27] MEDS: K and/or MAG REPLACEMENT MC SCH ×2 (08:00→20:00)
--- NOTE | 2022-06-27 08:12 | NUR ---
PAGER ID: [phone] MESSAGE: [id number], Pt had a run of V-Tach last night at 0304. He is now in steady Afib which he has a Hx of and is asymptomatic. Mac [phone]
[2022-06-27] MEDS: dabigatran 150mg capsule PO SCH ×2 (08:27→20:58)
[2022-06-27] MEDS: EMPAGLIFLOZIN 25 MG TABLET PO SCH (08:27)
[2022-06-27] MEDS: multivitamins, therapeutics tablet PO SCH (08:28)
[2022-06-27] MEDS: pantoprazole 40mg Tablet.DR PO SCH (08:28)
[2022-06-27] MEDS: docusate sod 100mg capsule PO SCH ×2 (08:28→20:58)
[2022-06-27] MEDS: ferrous gluconate 324mg tablet PO SCH ×2 (08:29→20:59)
[2022-06-27] MEDS: losartan 50mg tablet PO SCH (08:29)
[2022-06-27] MEDS: cyanocobalamin 500mcg tablet PO SCH (08:29)
[2022-06-27] MEDS: levoTHYROXINE 75mcg tablet PO SCH (08:29)
[2022-06-27] MEDS: furosemide 40mg tablet PO SCH (08:30)
[2022-06-27] MEDS: amLODIPine 5mg tablet PO SCH (08:30)
[2022-06-27] MEDS: magnesium hydroxide 30ml (MOM) UD suspension PO PRN (08:31)
[2022-06-27 12:00] VITALS: BP 124/54
--- NOTE | 2022-06-27 14:57 | NUR ---
Initial: Pt admit DX R pleural effusion s/p R CT, T2DM, HTN, GERD, and afib per EMR. Hx T2DM A1C 7.0% 06/01/22 prior admit on metformin BID, Lantus 62 units HS, and daily jardiance at home per EMR. Also hx lung CA s/p resection 06/02 admit to start radiation in future per EMR. PO fluctuates overall ~59% avg carb controlled/SB6 diet though improving to ~88% avg meals past two days partially meeting needs. RD recommends Glucerna ONS TIDWM; MD notified and verified ONS to start WS tonight. LBM 06/21 receiving routine colace w/ PRN MoM first given 06/26 and again today per EMR; would benefit from further bowel regimen if constipation persists. Will monitor for further PO trends and nutrition intervention needs this admit. Rec: 1. continue carb controlled/SB6 diet per MD; encourage PO 2. Glucerna TIDWM; encourage PO 3. routine bowel regimen; utilize PRN bowel care w/ 6 days constipation 4. weekly wts Addendum: 06/27/22 at [address] Amended: Links added.
[2022-06-27 18:00] VITALS: BP 117/43
[2022-06-27] MEDS: NUT.TX.GLUC.INTOLER,LAC-FR,SOY (GLUCERNA) 237 ML PO SCH (18:00)
--- NOTE | 2022-06-27 18:58 | NUR ---
Upon checking chest tube drainage for shift i noticed that daily drainage was 270ml, compared to the dropping amount of 70, 50, 40mls for the last three shifts. Drainage is completely serous as opposed to serous/sanguinous like the last shifts. Night nurse was notified.
[2022-06-27] MEDS: atorvastatin 20mg tablet PO SCH (20:58)
[2022-06-27] MEDS: cetirizine 10mg tablet PO SCH (20:58)
[2022-06-27] MEDS: spironolactone 25 MG tablet PO SCH (20:59)
[2022-06-27] MEDS: Terazosin 1mg capsule PO SCH (21:00)
[2022-06-27] MEDS: insulin glargine (Lantus) pen - multi-dose SQ SCH (21:07)
[2022-06-28] MEDS: HYDROcodone/acetaminophen 10/325mg tab PO PRN ×4 (00:08→19:17)
[2022-06-28 01:35] VITALS: BP 113/47
[2022-06-28 07:00] VITALS: BP 118/47
[2022-06-28] MEDS: EMPAGLIFLOZIN 25 MG TABLET PO SCH (08:00)
[2022-06-28] MEDS: NUT.TX.GLUC.INTOLER,LAC-FR,SOY (GLUCERNA) 237 ML PO SCH ×3 (08:00→18:00)
[2022-06-28] MEDS: K and/or MAG REPLACEMENT MC SCH ×2 (08:00→20:00)
[2022-06-28] MEDS: dabigatran 150mg capsule PO SCH ×2 (08:00→21:02)
[2022-06-28] MEDS: levoTHYROXINE 75mcg tablet PO SCH (08:58)
[2022-06-28] MEDS: ferrous gluconate 324mg tablet PO SCH ×2 (08:58→21:03)
[2022-06-28] MEDS: multivitamins, therapeutics tablet PO SCH (08:58)
[2022-06-28] MEDS: pantoprazole 40mg Tablet.DR PO SCH (08:58)
[2022-06-28] MEDS: amLODIPine 5mg tablet PO SCH (08:58)
[2022-06-28] MEDS: docusate sod 100mg capsule PO SCH ×2 (08:58→21:02)
[2022-06-28] MEDS: furosemide 40mg tablet PO SCH (08:58)
[2022-06-28] MEDS: cyanocobalamin 500mcg tablet PO SCH (08:59)
[2022-06-28] MEDS: losartan 50mg tablet PO SCH (08:59)
[2022-06-28 09:45] LABS: BASOPHILS # (AUTO) 0.1 X10'3 (0-0.2); BASOPHILS % (AUTO) 0.7 % (0-1); EOSINOPHILS # (AUTO) 0.3 X10'3 (0-0.9); HEMATOCRIT 30.5 % (42.0-52.0); HEMOGLOBIN 9.6 g/dl (14.0-17.9); LYMPHOCYTES # (AUTO) 0.5 X10'3 (1.1-4.8); LYMPHOCYTES % (AUTO) 5.4 % (21-51); MEAN CORPUSCULAR HGB CONC 31.4 g/dL (33.0-36.5); MEAN CORPUSCULAR VOLUME 82.8 FL (78-98); MEAN PLATELET VOLUME 8.1 FL (7.4-10.4); MONOCYTES # (AUTO) 0.9 X10'3 (0-0.9); MONOCYTES % (AUTO) 9.9 % (2-12); NEUTROPHILS # (AUTO) 7.1 X10'3 (1.8-7.7); PLATELET COUNT 247 X10'3 (140-440); RED BLOOD COUNT 3.68 X10'6 (4.70-6.10); RED CELL DISTRIBUTION WIDTH 17.1 % (11.5-14.5); WHITE BLOOD COUNT 8.7 X10'3 (4.5-11.0)
[2022-06-28 09:49] LABS: ALANINE AMINOTRANSFERASE 10 U/L (12-78); ALBUMIN 1.9 G/DL (3.4-5.0); ALBUMIN/GLOBULIN RATIO 0.5 (1.1-1.5); ALKALINE PHOSPHATASE 199 IU/L (46-116); ANION GAP 4 (8-16); ASPARTATE AMINO TRANSFERASE 16 U/L (10-37); BILIRUBIN,TOTAL 0.5 MG/DL (0.1-1.0); BLOOD UREA NITROGEN 30 MG/DL (7-18); BUN/CREATININE RATIO 21.4 (10.0-20.0); CALCIUM 8.3 MG/DL (8.5-10.1); CHLORIDE 98 MMOL/L (99-107); GLUCOSE 236 MG/DL (70-104); POTASSIUM 3.9 MMOL/L (3.5-5.1); SODIUM 132 MMOL/L (135-145); TOTAL CARBON DIOXIDE 29.6 MMOL/L (24-32); TOTAL PROTEIN 5.8 G/DL (6.4-8.2); eGFR 50 ML/MIN
[2022-06-28] MEDS: insulin Lispro (HumaLOG) vial - multi-dose SQ SCH ×2 (10:13→14:07)
[2022-06-28 11:28] VITALS: BP 110/46
[2022-06-28 15:09] VITALS: BP 104/41
[2022-06-28 18:00] VITALS: BP 100/41
--- NOTE | 2022-06-28 18:38 | NUR ---
agree with licensed investment sales assistant am assessment
[2022-06-28] MEDS: insulin glargine (Lantus) pen - multi-dose SQ SCH (20:57)
[2022-06-28] MEDS: Terazosin 1mg capsule PO SCH (21:00)
[2022-06-28] MEDS: spironolactone 25 MG tablet PO SCH (21:00)
[2022-06-28] MEDS: cetirizine 10mg tablet PO SCH (21:00)
[2022-06-28] MEDS: atorvastatin 20mg tablet PO SCH (21:00)
[2022-06-29] MEDS: HYDROcodone/acetaminophen 10/325mg tab PO PRN ×4 (00:01→14:32)
[2022-06-29 01:36] VITALS: BP 104/48
[2022-06-29 07:00] VITALS: BP 121/49
[2022-06-29] MEDS: NUT.TX.GLUC.INTOLER,LAC-FR,SOY (GLUCERNA) 237 ML PO SCH ×2 (08:00→13:00)
[2022-06-29] MEDS: K and/or MAG REPLACEMENT MC SCH (08:00)
[2022-06-29] MEDS: cyanocobalamin 500mcg tablet PO SCH (08:00)
[2022-06-29] MEDS: EMPAGLIFLOZIN 25 MG TABLET PO SCH (08:00)
[2022-06-29] MEDS: levoTHYROXINE 75mcg tablet PO SCH (09:22)
[2022-06-29] MEDS: docusate sod 100mg capsule PO SCH (09:23)
[2022-06-29] MEDS: ferrous gluconate 324mg tablet PO SCH (09:23)
[2022-06-29] MEDS: furosemide 40mg tablet PO SCH (09:23)
[2022-06-29] MEDS: dabigatran 150mg capsule PO SCH (09:23)
[2022-06-29] MEDS: pantoprazole 40mg Tablet.DR PO SCH (09:23)
[2022-06-29] MEDS: multivitamins, therapeutics tablet PO SCH (09:23)
[2022-06-29] MEDS: losartan 50mg tablet PO SCH (09:24)
[2022-06-29] MEDS: amLODIPine 5mg tablet PO SCH (09:24)
[2022-06-29] MEDS: insulin Lispro (HumaLOG) vial - multi-dose SQ SCH (10:06)
[2022-06-29 11:00] VITALS: BP 118/56
[2022-06-29 15:00] VITALS: BP 122/60
--- NOTE | 2022-06-29 16:29 | NUR ---
Pt d/c'd to snf at approx 1620 today with all paperwork and belongings. PIV d/c'd cannula intact. Pt transferred into medical transport vehicle safely.
== END 2022-06-29 16:20 | DRG 180 ==
LOC: ER 09:50 → ED HOLD 18:08 → PCU 3S 21:59
PROVIDERS: ADMIT Internal Medicine; ATTEND Internal Medicine
PROC: 0W9930Z Drainage of Right Pleural Cavity with Drainage Device, Percutaneous Approach (ICD-10-PCS; principal; 2022-06-22)
PROC: 5A09357 Assistance with Respiratory Ventilation, Less than 24 Consecutive Hours, Continuous Positive Airway Pressure (ICD-10-PCS; 2022-06-22)
PROC: B32T1ZZ Computerized Tomography (CT Scan) of Left Pulmonary Artery using Low Osmolar Contrast (ICD-10-PCS; 2022-06-22)
PROC: B3201ZZ Computerized Tomography (CT Scan) of Thoracic Aorta using Low Osmolar Contrast (ICD-10-PCS; 2022-06-22)
PROC: B32S1ZZ Computerized Tomography (CT Scan) of Right Pulmonary Artery using Low Osmolar Contrast (ICD-10-PCS; 2022-06-22)
DX: C34.92 Malignant neoplasm of unspecified part of left bronchus or lung (principal); J96.21 Acute and chronic respiratory failure with hypoxia; J91.8 Pleural effusion in other conditions classified elsewhere; I11.0 Hypertensive heart disease with heart failure; I25.10 Atherosclerotic heart disease of native coronary artery without angina pectoris; E03.9 Hypothyroidism, unspecified; E11.9 Type 2 diabetes mellitus without complications; E78.00 Pure hypercholesterolemia, unspecified; I48.91 Unspecified atrial fibrillation; R00.0 Tachycardia, unspecified; F41.9 Anxiety disorder, unspecified; I50.9 Heart failure, unspecified; J44.9 Chronic obstructive pulmonary disease, unspecified; K21.9 Gastro-esophageal reflux disease without esophagitis; N40.0 Benign prostatic hyperplasia without lower urinary tract symptoms; Z79.4 Long term (current) use of insulin; I25.2 Old myocardial infarction; Z85.038 Personal history of other malignant neoplasm of large intestine; Z87.891 Personal history of nicotine dependence; Z88.1 Allergy status to other antibiotic agents; Z90.2 Acquired absence of lung [part of]; Z95.1 Presence of aortocoronary bypass graft; Z79.84 Long term (current) use of oral hypoglycemic drugs; Z92.21 Personal history of antineoplastic chemotherapy; Z90.49 Acquired absence of other specified parts of digestive tract; Z79.899 Other long term (current) drug therapy; Z79.01 Long term (current) use of anticoagulants
CPT/HCPCS: 32557; 36415; 36600; 71045; 71275; 80048; 80053; 82800; 82803; 82948; 83735; 83880; 84484; 85018; 85025; 87081; 93005; 93308; 94640; 94660; 94760; 96374; 97110; 97116; 97161; 97530; 99285; A4349; A4421; A4615; A4649; A5200; A6209; A6212; A6222; A6250; A6258; A6449; C1729; C1769; G0378; J0692; J1815; J1940; J3490; J7030; Q9967

== ENCOUNTER 2022-07-06 09:16 | Emergency (ER) | payer OTHER, MEDICARE ==
[~2022-07-06] VITALS: Ht 167.6 cm; Wt 107.3 kg
[~2022-07-06 09:16] MED LIST changes: -ACET-2119 PO; -ATOR20TA PO; -INSU100V43; -NA P133E4 RC; +SIMV-343 PO
--- NOTE | 2022-07-06 09:47 | NUR ---
PT DEXCOM CK 123. ACCUCK [id number]
[2022-07-06 10:09] LABS: BASOPHILS # (AUTO) 0.1 X10'3 (0-0.2); EOSINOPHILS # (AUTO) 0.1 X10'3 (0-0.9); EOSINOPHILS % (AUTO) 1.6 % (0-6); HEMATOCRIT 31.4 % (42.0-52.0); HEMOGLOBIN 9.8 g/dl (14.0-17.9); LYMPHOCYTES # (AUTO) 0.3 X10'3 (1.1-4.8); LYMPHOCYTES % (AUTO) 3.2 % (21-51); MEAN CORPUSCULAR HEMOGLOBIN 25.4 PG (27.0-31.0); MEAN CORPUSCULAR HGB CONC 31.3 g/dL (33.0-36.5); MEAN CORPUSCULAR VOLUME 81.1 FL (78-98); MEAN PLATELET VOLUME 7.6 FL (7.4-10.4); MONOCYTES # (AUTO) 0.6 X10'3 (0-0.9); NEUTROPHILS # (AUTO) 7.6 X10'3 (1.8-7.7); NEUTROPHILS % (AUTO) 87.2 % (42-75); PLATELET COUNT 251 X10'3 (140-440); RED BLOOD COUNT 3.88 X10'6 (4.70-6.10); RED CELL DISTRIBUTION WIDTH 17.5 % (11.5-14.5); WHITE BLOOD COUNT 8.8 X10'3 (4.5-11.0)
[2022-07-06 11:04] LABS: ALANINE AMINOTRANSFERASE 8 U/L (12-78); ALBUMIN 2.1 G/DL (3.4-5.0); ALBUMIN/GLOBULIN RATIO 0.5 (1.1-1.5); ALKALINE PHOSPHATASE 187 IU/L (46-116); ANION GAP 9 (8-16); ASPARTATE AMINO TRANSFERASE 16 U/L (10-37); BILIRUBIN,TOTAL 0.8 MG/DL (0.1-1.0); BLOOD UREA NITROGEN 25 MG/DL (7-18); BUN/CREATININE RATIO 21.7 (10.0-20.0); CALCIUM 8.7 MG/DL (8.5-10.1); CHLORIDE 99 MMOL/L (99-107); CREATININE 1.15 MG/DL (0.60-1.10); GLUCOSE 142 MG/DL (70-104); POTASSIUM 4.2 MMOL/L (3.5-5.1); SODIUM 134 MMOL/L (135-145); TOTAL CARBON DIOXIDE 25.6 MMOL/L (24-32); TOTAL PROTEIN 6.3 G/DL (6.4-8.2); eGFR 62 ML/MIN
[2022-07-06] MEDS ORDERED: iohexol 350MG/ML 100ml bottle IV ONE (14:13)
[2022-07-06 14:15] LABS: CLARITY,URINE CLEAR (Clear); COLOR,URINE YELLOW (Yellow); GLUCOSE, URINE >=1000 mg/dl (Neg); KETONES,URINE 15 mg/dl (Neg); LEUKOCYTE ESTERASE ,URINE NEGATIVE (Neg); NITRITES, URINE NEGATIVE (Neg); OCCULT BLOOD,URINE NEGATIVE (Neg); PROTEIN,URINE NEGATIVE (Neg); UROBILINOGEN,URINE 0.2 E.U/dL (0.2-1.0)
[2022-07-06 14:44] LABS: UA COLLECTION TYPE STRAIGHT CATH
[2022-07-06 14:49] LABS: BACTERIA,URINE NONE SEEN /HPF (Neg); RBC,URINE NONE SEEN /HPF (0-2); SQUAMOUS EPITHELIAL CELL,UR FEW /LPF (FEW); WBC,URINE 0-4 /HPF (0-4); YEAST FEW /HPF (NEGATIVE)
--- NOTE | 2022-07-06 17:50 | NUR ---
[facility] CONTACTED FOR TRANSPORT BACK TO [facility]. ETA 20-30 MINS.
--- NOTE | 2022-07-06 17:53 | NUR ---
PT TRANSPORT ETA 1836
[2022-07-06 17:56] VITALS: BP 130/56
== END 2022-07-06 18:26 ==
LOC: ER 09:16
DX: J94.8 Other specified pleural conditions (principal); R06.02 Shortness of breath; I11.9 Hypertensive heart disease without heart failure; I50.9 Heart failure, unspecified; E78.00 Pure hypercholesterolemia, unspecified; E03.9 Hypothyroidism, unspecified; E11.9 Type 2 diabetes mellitus without complications; F41.9 Anxiety disorder, unspecified; Z98.890 Other specified postprocedural states; Z90.49 Acquired absence of other specified parts of digestive tract; Z88.1 Allergy status to other antibiotic agents; Z79.899 Other long term (current) drug therapy; Z79.1 Long term (current) use of non-steroidal anti-inflammatories (NSAID); Z79.2 Long term (current) use of antibiotics
CPT/HCPCS: 36415; 71045; 71275; 80053; 81001; 83605; 83880; 84484; 85025; 93005; 99285; J3490; Q9967; A6449